=== PATIENT | female | born 1980 | race Caucasian/White ===

== ENCOUNTER 2018-11-08 07:43 | Inpatient (IN) | payer BC ==
[~2018-11-08] VITALS: Ht 160 cm; Wt 75.5 kg
[2018-11-08] MEDS ORDERED: OXYTOCIN 30 UNITS/LR 500 ML IV SCH ×2 (08:00→10:42)
[2018-11-08] MEDS ORDERED: CEFAZOLIN 2 GM/50 ML (PMX) 50 ML IVPB SCH (08:00)
[2018-11-08] MEDS ORDERED: MISOPROSTOL 200 MCG TAB PR PRN ×2 (08:00→11:00)
[2018-11-08] MEDS ORDERED: OXYTOCIN 30 UNITS/LR 500 ML IV PRN ×2 (08:00→11:00)
[2018-11-08] MEDS ORDERED: CARBOPROST 250 MCG INJ IM PRN ×2 (08:00→11:00)
[2018-11-08] MEDS ORDERED: METHYLERGONOVINE 0.2 MG INJ IM PRN ×2 (08:00→11:00)
[2018-11-08 08:31] VITALS: Ht 160 cm; Wt 75.5 kg
--- NOTE | 2018-11-08 09:02 | PREOPHP ---
DATE OF ADMISSION: 11/08/2018 HISTORY OF PRESENT ILLNESS: Ms. Ileana Tai is a 38-year-old 2, para 0, EDC 11/28/2018 intra uterine at 37 weeks gestational age, was recommended by Dr. Gonzalez/perinatologist to be del ivered at 37 weeks secondary to polyhydramnios consistent with gestational diabetes. The patient corky ires elective delivery versus induction. Patient understands the risk of a deliver y and increased risk of bleeding, infection not limited to organ damage during the delivery and recovery. The patient also understands there is an increased risk of placenta accreta in her nex t . The patient reports good movement. Her care took place with Nilson degroot MD. MEDICAL HISTORY: GDM 2, gestational hypertension. MEDICATIONS: Insulin, vitamins. PAST SURGICAL HISTORY: None. OBSTETRICAL HISTORY: x1 missed AB. GYNECOLOGIC HISTORY: 12, regular 3 to 4 days. Denies any sexually transmitted infections. Sexually active with 1 partner. SOCIAL HISTORY: Denies any smoking, drugs or alcohol. FAMILY HISTORY: None. REVIEW OF SYSTEMS: All within normal except history of present illness. PHYSICAL EXAMINATION: HEENT: Within normal. LUNGS: CTA bilateral. CARDIOVASCULAR: S1, S2, regular rhythm. ABDOMEN: Gravid, nontender. Negative CVA bilateral. EXTREMITIES: No calf tenderness. PELVIC: Vaginal exam deferred. heart tracing category 1. [employer], occasional contractions. ASSESSMENT: 1. A 38-year-old 2, para 0, intrauterine at 37 weeks gestational age. 2. Advanced maternal age. 3. Gestational hypertension, GDM A2, polyhydramnios, desires elective delivery, maternal re quest. PLAN: Consent for a primary . Risks, benefits and alternatives explained. All questions w ere answered. Dictated By: NILSON HOLBROOK/MAGY Conf#: [id number] DID#: [id number] CC: JALIL VAZ MD;*EndCC*
[2018-11-08] MEDS ORDERED: EPHEDrine 25 MG/5 ML SYG ONE (09:28)
[2018-11-08] MEDS ORDERED: morphine SULFATE/PF (10 MG/10 ML) INJ ONE (09:28)
[2018-11-08] MEDS ORDERED: METOCLOPRAMIDE 10 MG INJ ONE (09:45)
[2018-11-08] MEDS ORDERED: ONDANSETRON 4 MG INJ ONE (09:45)
[2018-11-08] MEDS ORDERED: OXYTOCIN 10 UNIT INJ ONE (09:50)
[2018-11-08] MEDS ORDERED: MIDAZOLAM 1 MG/ML 2 ML INJ ONE (10:01)
[2018-11-08] MEDS ORDERED: LACTATED RINGER'S 1,000 ML IV ONE (10:04)
--- NOTE | 2018-11-08 10:04 | PREAC ---
Date/Time of Note Date/Time of Note DATE: 11/08/18 TIME: 09:54 Anesthesia Eval and Record Evaluation Time Pre-Procedure Interview DATE: 11/08/18 TIME: 09:07 Age 38 Sex female NPO: 8 hrs Preoperative diagnosis iup @ 37 wks, gdm, gestational htn, polyhydramnios, Planned procedure primary c/s Past Medical History Past Medical History: Includes : : (2), Para: (0), Gestational age: (37 wks.), Gestational diabetes, PIH Surgery & Anesthesia Issues No known issue Meds Anticoagulation: No Beta Adam within 24 hr: No Reason Beta Adam not given: Pt. not on B-Adam Current Medications Lactated Ringer's 1,000 ml @ 125 mls/hr Q8H IV ; Start 11/08/18 at 07:49 Cefazolin Sodium/ Dextrose 50 ml @ 100 mls/hr ONCE IVPB ; Start 11/08/18 at 08:00 Oxytocin/Lactated Ringer's 500 ml @ 125 mls/hr POST IV ; Start 11/08/18 at 08:00 Oxytocin/Lactated Ringer's 500 ml @ 0 mls/hr ONCE PRN IV .VAGINAL BLEEDING; Sta rt 11/08/18 at 08:00 Methylergonovine Maleate (Methergine) 0.2 mg ONCE PRN IM .VAGINAL BLEEDING; Sta rt 11/08/18 at 08:00 Carboprost Tromethamine (Hemabate) 250 mcg ONCE PRN IM .VAGINAL BLEEDING; Start 11/08/18 at 08:00 Misoprostol (Cytotec) 1,000 mcg ONCE PRN LA .VAGINAL BLEEDING; Start 11/08/18 at 08:00 Meds reviewed: Yes Allergies Coded Allergies: No Known Allergy (Unverified , 11/08/18) Allergies Reviewed: Yes Labs/Studies Labs Reviewed: Reviewed by anesthesiologist Result Diagram: 11/08/1842 11/08/1842 Laboratory Tests 11/08/18 08:42 Blood Bank Test 11/08/18 08:42 Antibody Screen NEGATIVE Blood Type B POSITIVE Rh Immune Globulin Candidate NO test: Positive Studies: ECG (n/a), CXR (n/a) Pre-procedure Exam Airway: Adequate mouth opening, Adequate thyromental dist Mallampati: Mallampati II Teeth: Normal Lung: Normal Heart: Normal ASA Physical Status ASA physical status: 3 Emergency: None Planned Anesthetic General/MAC: MAC Neuraxial: Spinal Planned Pain Management Sub-arachniod narcotics, Parenteral pain med, Local by surgeon Pre-operative Attestations Prior to commencing anesthesia and surgery, the patient was re-evaluated, there was verification of: *The patient's identity *The results of appropriate recent lab work and preoperative vital signs *The above evaluation not changing prior to induction *Anesthetic plan, risk benefits, alternative and complications discussed with patient/family; questions answered; patient/family understands, accepts and wishes to proceed. Basting Marker used SEAN JACKSON MD Nov 08, 2018 10:04
[2018-11-08] MEDS ORDERED: KETOROLAC 30 MG INJ IV PRN (10:30)
[2018-11-08] MEDS ORDERED: ZOLPIDEM 5 MG TAB PO PRN (10:30)
[2018-11-08] MEDS ORDERED: MIDAZOLAM 1 MG/ML 2 ML INJ IV PRN (10:30)
[2018-11-08] MEDS ORDERED: NALBUPHINE HCL (10 MG/1 ML) INJ IV PRN (10:30)
[2018-11-08] MEDS ORDERED: ONDANSETRON 4 MG INJ IV PRN (10:30)
[2018-11-08] MEDS ORDERED: DIPHENHYDRAMINE 50 MG INJ IV PRN ×2 (10:30)
[2018-11-08] MEDS ORDERED: NALOXONE (0.4 MG/ML) INJ IV PRN (10:30)
[2018-11-08] MEDS ORDERED: HYDROmorphONE 0.5 MG/0.5 ML SYG IV PRN ×2 (10:30)
[2018-11-08] MEDS ORDERED: MEPERIDINE 25 MG INJ IV PRN (10:30)
--- NOTE | 2018-11-08 10:38 | OPPN ---
Date/Time of Note Date/Time of Note DATE: 11/08/18 TIME: 10:36 Operative Report Planned Procedure Procedure date Nov 08, 2018 Procedure(s) primary low transverse CD Performed by see signature line Senior Bioinformatics Specialist: PRITI SINGH MD 2nd Senior Bioinformatics Specialist none Anesthesiologist: SEAN JACKSON MD Pre-procedure diagnosis 1. A 38-year-old 2, para 0, intrauterine at 37 weeks gestational age. 2. Advanced maternal age. 3. Gestational hypertension, GDM A2, polyhydramnios, desires elective delivery, maternal request. [id number] Anesthesia Type: Kvgje7z spinal Post-Procedure Post-procedure diagnosis same Findings A viable male 9/9 weight 2915 grams. normal uterus tubes and ovaries Estimated Blood Loss: 500 - 600 mls Specimen(s) none Grafts/Implant(s) none Complication(s) none KEZIA MELVIN MD Nov 08, 2018 10:38
[2018-11-08] MEDS ORDERED: OXYCODONE/ACETAMINOPHEN (5/325) TAB PO PRN (11:00)
[2018-11-08] MEDS ORDERED: NACL 0.9% 3 ML SYG IV SCH (11:00)
--- NOTE | 2018-11-08 11:12 | OPR ---
DATE OF OPERATION: 11/08/2018 PRIMARY DIAGNOSES: A 38-year-old 2, para 0, intrauterine at 37 weeks gestational a ge, advanced maternal age, gestational hypertension, GDMA2, polyhydramnios, desires elective delivery, maternal request. POSTOPERATIVE DIAGNOSES: A 38-year-old 2, para 0, intrauterine at 37 weeks gestati onal age, advanced maternal age, gestational hypertension, GDMA2, polyhydramnios, desires elective ce sarean delivery, maternal request. OPERATION PROCEDURE: Primary low transverse delivery. SURGEON: Nilson Boss MD OXYGEN THERAPIST: Erin Mccrary MD ANESTHESIA: Spinal. COMPLICATIONS: None. ESTIMATED BLOOD LOSS: 500 mL. FINDINGS: A viable male, 9 and 9, weight 2915 grams. Normal uterus, tubes and ovaries. DESCRIPTION OF PROCEDURE: After explaining the risks, benefits and alternatives to the patient, cons ent signed in chart, the patient was taken to the operating room where spinal anesthesia was found to be adequate. She was then prepared and draped in normal sterile fashion in dorsal supine position w ith a leftward tilt. A Pfannenstiel skin incision was then made with a scalpel and carried to the un derlying fascia. The fascia was incised in midline, incision was extended laterally with Ramires scisso rs. The superior aspect of the fascial incision was grasped with curved clamps, elevated and the und erlying rectus muscles dissected off bluntly. Attention was then turned to the inferior aspect of th e incision which in similar fashion was grasped, tented up with curved clamps and the rectus muscles dissected off bluntly. The rectus muscle was in midline, peritoneum identified, entered sh arply with Metzenbaum scissors. The peritoneal incision was extended superiorly with good visualizat ion of the bladder. The bladder blade was then inserted and the lower uterine segment incised in tra nsverse fashion with the scalpel. The uterine incision was extended laterally. The bladder blade wa s removed and the 's head delivered atraumatically. The nose and mouth were suctioned and cord clamped and cut. The infant was handed off to waiting heart specialist. The placenta was then removed. The uterus was exteriorized and cleared of all clots and debris. The uterine incision was repaired with 1-0 chromic in a running locked fashion. A second layer of same suture was used for imbricatio n obtaining excellent hemostasis. The uterus was returned to the abdomen. The gutters were cleared of all clots. The peritoneum and rectus abdominis was reapproximated with a 2-0 Vicryl in an interru pted fashion. The fascia was reapproximated with 0 Vicryl in a running fashion. The subcutaneous ti ssue was reapproximated with 2-0 plain gut in a running fashion. The skin was closed with absorbable ashli. The patient tolerated procedure well. All counts were correct. The patient was taken to recovery room in stable condition. Dictated By: NILSON HOLBROOK/MAGY Conf#: [id number] DID#: [id number] CC: JALIL VAZ MD;*EndCC*
[2018-11-08] MEDS: LACTATED RINGER'S 1,000 ML IV SCH ×3 (11:37→23:20)
--- NOTE | 2018-11-08 13:59 | PAC ---
Date/Time of Note Date/Time of Note DATE: 11/08/18 TIME: 13:59 Post-Anesthesia Notes Post-Anesthesia Note Activity: WNL Respiratory function: WNL Cardiovascular function: WNL Mental status: Baseline Pain reasonably controlled: Yes Hydration appropriate: Yes Nausea/Vomiting absent: Yes SEAN JACKSON MD Nov 08, 2018 13:59
[2018-11-08 15:00] VITALS: BP 105/59; PULSE 81; RESP 18
[2018-11-08] MEDS: ACCU-CHEK XX SCH ×2 (15:25→20:56)
[2018-11-08 16:00] VITALS: BP 99/55; PULSE 75; RESP 18
[2018-11-08 18:00] VITALS: BP 99/56; PULSE 85; RESP 18
[2018-11-08] MEDS: CEFAZOLIN 2 GM/50 ML (PMX) 50 ML IVPB SCH (18:01)
[2018-11-08 19:45] VITALS: BP 105/57; PULSE 78; RESP 18
[2018-11-09] VITALS: BP 100/56; PULSE 79; RESP 18
[2018-11-09] MEDS: CEFAZOLIN 2 GM/50 ML (PMX) 50 ML IVPB SCH ×2 (01:59→09:46)
[2018-11-09 03:45] VITALS: BP 96/52; PULSE 80; RESP 18
--- NOTE | 2018-11-09 06:04 | OPPN ---
Date/Time of Note Date/Time of Note DATE: 11/09/18 TIME: 06:03 Anesthesia Follow up Anesthesia Follow up Last documented vital signs Vital Signs Date Temp Pulse Resp B/P (MAP) Pulse Ox O2 O2 Flow FiO2 Time Delivery Rate 11/09/18 99.1 80 18 96/52 (67) 94 Room Air 03:45 Respiratory function: WNL Cardiovascular function: WNL Comments S: pt. is pod #1. min. bt pain. min. need for bt pain meds ie nsaids/opiates. min. n/v. ambulating. O: vss, afeb. A: min bt pain sec. to it mso4. P: no complications. SEAN JACKSON MD Nov 09, 2018 06:04
[2018-11-09 08:20] VITALS: BP 100/58; PULSE 75; RESP 18
[2018-11-09] MEDS: ACCU-CHEK XX SCH ×4 (08:20→20:55)
--- NOTE | 2018-11-09 08:43 | QN ---
Documentation Comment progress note pod 1 patient seen and evaluated no complaints vs stable afebrile ab dressing clean/dry no distention extremity no edema no calf tenderness a/ sp cd pod 1 stable afebrile p/ encourage ambulation KEZIA MELVIN MD Nov 09, 2018 08:43
[2018-11-09 12:45] VITALS: BP 106/63; PULSE 78; RESP 20
[2018-11-09] MEDS: IBUPROFEN 600 MG TAB PO SCH ×3 (12:46→23:31)
[2018-11-09 15:24] VITALS: BP 94/56; PULSE 80; RESP 18
[2018-11-09] MEDS: OXYCODONE/ACETAMINOPHEN (5/325) TAB PO PRN ×2 (15:46→22:30)
[2018-11-09] MEDS: LANOLIN HPA 1 PKT TOP PRN (17:40)
[2018-11-09 20:15] VITALS: BP 94/69; PULSE 79; RESP 18
[2018-11-10 03:51] VITALS: BP 113/64; PULSE 75; RESP 18
[2018-11-10] MEDS: IBUPROFEN 600 MG TAB PO SCH ×4 (05:42→23:57)
[2018-11-10] MEDS: ACCU-CHEK XX SCH ×4 (07:30→20:46)
[2018-11-10 08:00] VITALS: BP 131/70; PULSE 80; RESP 20
--- NOTE | 2018-11-10 11:22 | QN ---
Documentation Comment progress note pod 2 patient seen and evaluated no complaints vs stable afebrile ab c/d/i no distention extremity no edema no calf tenderness a/ sp cd pod 2 stable afebrile p/ encourage ambulation f/u wit vendor management consultant KEZIA MELVIN MD Nov 10, 2018 11:22
[2018-11-10 15:30] VITALS: BP 120/73; PULSE 89; RESP 18
[2018-11-10 16:06] VITALS: BP 120/73; PULSE 89; RESP 18
[2018-11-10] MEDS: LANOLIN HPA 1 PKT TOP PRN (17:53)
[2018-11-10 20:00] VITALS: BP 113/79; PULSE 83; RESP 20
[2018-11-10] MEDS: OXYCODONE/ACETAMINOPHEN (5/325) TAB PO PRN (20:41)
[2018-11-11 04:54] VITALS: BP 93/56; PULSE 80; RESP 18
[2018-11-11] MEDS: IBUPROFEN 600 MG TAB PO SCH ×4 (05:25→23:59)
[2018-11-11] MEDS: ACCU-CHEK XX SCH ×4 (07:30→20:05)
[2018-11-11 08:30] VITALS: BP 99/67; PULSE 80; RESP 16
[2018-11-11] MEDS: OXYCODONE/ACETAMINOPHEN (5/325) TAB PO PRN ×3 (08:50→21:28)
[2018-11-11] MEDS ORDERED: BISACODYL 10 MG SUPP PR ONE (10:00)
[2018-11-11 17:22] VITALS: BP 108/58; PULSE 79; RESP 18
[2018-11-11 20:00] VITALS: BP 117/69; PULSE 87; RESP 18
--- NOTE | 2018-11-11 23:36 | PD.PPDC ---
SALES ANALYTICS MANAGER Discharge Instruction Condition [id number] Patient Condition: Psvck2k Good Diet Fadmc0Vv Diet: Biili3e Resume Regular Diet Activity/Restrictions Arthq6Fg Activity: Aoemx7p Normal Activity May Shower Pskbw2Je Restrictions: Ubmxe8s No Exercising No Lifting No Driving No Sexual Activity Nothing in the Vagina No Rodney No Tampons, douche Follow-up Follow-up with Physician: 2, Week/Weeks Return to clinic for Chmua9Iq METALLURGICAL ENGINEERING TECHNICIAN Instructions: Rytfr9h Fever greater than 101 Chills Worsening abdominal pain Excessive Vaginal Bleeding More than 2 pads per hour Unable to tolerate diet Isvcv7Ce OB Instructions: Uqtlh5r Breast Tenderness Depression Blurried Vision Headache Zfslu6Qp Surgical Instructions: Zmrlp0u Incisional Drainage Incisional Redness KEZIA MELVIN MD Nov 11, 2018 23:36
--- NOTE | 2018-11-11 23:46 | DS ---
DATE OF ADMISSION: 11/08/2018 DATE OF DISCHARGE: 11/12/2018 PRIMARY DIAGNOSES: 1. A 38-year-old 2, para 0, intrauterine at 37 weeks gestational age. 2. Advanced maternal age. 3. Gestational hypertension. 4. Gestational diabetes mellitus A2. 5. Polyhydramnios. 6. Desires elective delivery, maternal request. PROCEDURE: Primary low transverse delivery. CONDITION ON DISCHARGE: Stable. ACTIVITY: None per vagina, no lifting x6 weeks. DIET: Regular. MEDICATIONS ON DISCHARGE: Motrin 800 mg q.8 hours p.r.n. severe pain. DISCHARGE SUMMARY: Ms. Ileana Tai underwent primary low transverse delivery on 11/08/2018. She had a viable male, 9 and 9 respectively at 1 and 5 minutes, weight 2915 grams. She had a n uneventful postop day 1, 2 and 3. She was discharged on postop day #4. Her incision is clean, dry and intact. She is ambulating, tolerating diet, positive flatulence, positive bowel movement. She will follow up in the clinic in 2 weeks for /postop care. Dictated By: KEZIA MELVIN MD ME/NTS Conf#: [id number] DID#: [id number] CC: JALIL VAZ MD;*EndCC*
[2018-11-12 04:00] VITALS: BP 97/70; PULSE 73; RESP 18
[2018-11-12] MEDS: IBUPROFEN 600 MG TAB PO SCH ×2 (06:00→12:03)
[2018-11-12] MEDS: ACCU-CHEK XX SCH ×3 (07:30→13:50)
[2018-11-12 08:00] VITALS: BP 115/74; PULSE 87; RESP 18
[2018-11-12] MEDS: OXYCODONE/ACETAMINOPHEN (5/325) TAB PO PRN (10:51)
[2018-11-12] MEDS ORDERED: PETROLATUM 5 GM OINT TOP ONE (12:37)
[2018-11-12] MEDS: LANOLIN HPA 1 PKT TOP PRN (12:41)
--- NOTE | 2018-11-13 17:08 | DELSUM ---
Delivery Summary A-C Datetime Report Generated by CPN: 11/13/2018 17:07 DELIVERY PERSONNEL Clay Plant Treater: Mao, Jeanette MATERNAL INFORMATION Delivery Anesthesia: Spinal Medications in Delivery: See Anesthesia Notes Delivery QBL (ml): 608 Placenta Cultured: No Maternal Complications: Other Other Maternal Complications: Polyhydramnios, gestational diabetes, AMA LABOR SUMMARY EDC: 11/28/2018 00:00 No. Babies in Womb: 1 Attempted: No Labor Anesthesia: None LABOR INFORMATION Reason for Induction: Not Applicable Group B Beta Strep: Done, Result Unknown Antibiotics # of Doses: 1 Antibiotics Time of Last Dose: 11/08/2018 09:37 Steroids Given: None Reason Steroids Not Administered: Not Applicable MEMBRANES Membranes Rupture Method: Artificial Rupture of Membranes: 11/08/2018 10:00 Length of Rupture (hr): 0.00 Amniotic Fluid Color: Clear Amniotic Fluid Amount: Moderate Amniotic Fluid Odor: None STAGES OF LABOR Stage 3 hr: 0 Stage 3 min: 3 CSECTION DELIVERY Primary Indication: Elective Primary Secondary Indication: N/A CSection Urgency: Elective CSection Incidence: Primary Labor: No Labor Elective: Elective CSection Incision: Lower Uterine Transverse BABY A INFORMATION Infant Delivery Date/Time: 11/08/2018 10:00 Method of Delivery: Born in Route : No : N/A Forceps: N/A Vacuum Extraction: N/A Shoulder Dystocia : No SHOULDER DYSTOCIA BABY A Infant Delivery Date/Time: 11/08/2018 10:00 PRESENTATION/POSITION BABY A Presentation: Cephalic Cephalic Presentation: Vertex Vertex Position: Left Occipital Anterior Breech Presentation: N/A PLACENTA INFORMATION BABY A Placenta Delivery Time : 11/08/2018 10:03 Placenta Method of Delivery: Manual Removal Placenta Status: Delivered SCORES BABY A Heart Rate 1 min: >100 bpm Resp Effort 1 min: Good Cry Reflex Irritability 1 min: Cough/Sneeze/Pulls Away Muscle Tone 1 min: Active Motion Color 1 min: Body [place], Extremit Blue Resuscitation Effort 1 min: Tactile Stimulation SCORE 1 MIN: 9 Heart Rate 5 min: >100 bpm Resp Effort 5 min: Good Cry Reflex Irritability 5 min: Cough/Sneeze/Pulls Away Muscle Tone 5 min: Active Motion Color 5 min: Body [place], Extremit Blue Resuscitation Effort 5 min: Tactile Stimulation SCORE 5 MIN: 9 INFANT INFORMATION BABY A Gestational Age at Delivery: 37.1 Gestational Status: Early Term- 37- 38.6 Weeks Infant Outcome : Liveborn, with signs of life Infant Condition : Stable Sex: Male IDENTIFICATION/MEDS BABY A ID Band Number: [id number] ID Band Location: Right Leg; Left Arm Sensor Applied: Yes Sensor Number: [id number] Sensor Location : Cord Clamp Vitamin K Given : Not Given Erythromycin Given: Not Given WEIGHT/LENGTH BABY A Infant Birthweight (gm): 2915 Weight (lb): 6 Weight (oz): 7 Infant Length (in): 19.50 Infant Length (cm): 49.53 CORD INFORMATION BABY A No. Cord Vessels: 3 Nuchal Cord : Around Neck x1, Loose Cord Blood Taken: Yes Suction: Mouth; Nose ASSESSMENT BABY A Infant Complications: None Physical Findings at Delivery: Within Normal Limits Infant Respirations: Appears Normal Environmental Services Lead/ALS Called : No Infant Care By: Philipp Smyth RN Transferred To: Remains with Mother
== END 2018-11-12 16:20 | disposition home or self-care (01) | DRG 788 ==
LOC: L-D 07:43 → PP1 14:52
PROVIDERS: ADMIT Specialist; ATTEND Obstetrics & Gynecology
PROC: 3E033VJ Introduction of Other Hormone into Peripheral Vein, Percutaneous Approach (ICD-10-PCS; 2018-11-08)
PROC: 10D00Z1 Extraction of Products of Conception, Low, Open Approach (ICD-10-PCS; principal; 2018-11-08 10:30)
DX: O13.4 Gestational [pregnancy-induced] hypertension without significant proteinuria, complicating childbirth (principal); O24.429 Gestational diabetes mellitus in childbirth, unspecified control; O40.3XX0 Polyhydramnios, third trimester, not applicable or unspecified; Z3A.37 37 weeks gestation of pregnancy; Z37.0 Single live birth
CPT/HCPCS: 82947; 82962; 85025; 85610; 85730; 86592; 86850; 86900; 86901; 87340; 99464; J0690; J1885; J2250; J2274; J2405; J2590; J2765; J7120